=== PATIENT | male | born 1965 | race Caucasian/White ===

== ENCOUNTER 2018-09-29 10:39 | Emergency (ER) | payer OTHER ==
--- NOTE | 2018-09-29 10:47 | PDOC ---
Attending Attestation - Resident Resident Name: Eugene Donaldson - HPI HPI: 09/29/18 11:35 Pt presents to the Ed after cutting his R forearm on metal that was sticking up from a ventilation bailey. Denies other injuries. Injury happened immediately prior to arrival. Uncertain of last tetanus. - Physicial Exam PE: 09/29/18 11:36 + 6 cm gaping wound to the volar surface of the R forearm. + tendon visible. Tendon examined through full ROM and appears intact. Intact wrist and finger flexion. 09/29/18 11:38 - Medical Decision Making 09/29/18 11:38 Pt presents to the ED complaining of laceration to the forearm. Wound repaired in the ED. No suspicion for foreign body or fracture. Will discharge home with instructions to return to the ED in 10 days for suture removal, and to return immediately for signs of infection. Given that the patient is diabetic, will prescribe prophylaxc antibiotics.
[2018-09-29 11:00] VITALS: BP 99/65; PULSE 84; TEMP 98.3; BMI 34.4
[2018-09-29] MEDS ORDERED: DIPHTH,PERTUSS(ACELL),TET 0.5 ML DISP.SYRIN IM ONE ×2 (11:22→12:30)
--- NOTE | 2018-09-29 11:26 | PDOC ---
History of Present Illness - General Chief Complaint: Laceration Stated Complaint: I CUT MY ARM Time Seen by Provider: 09/29/18 10:47 - History of Present Illness Initial Comments: 09/29/18 11:28 Mr. Correia is a 53 yo male w/ pmh of DM who presents for evaluation after falling on a metal grate and cutting his R forearm earlier today. Patient denies hitting his head or any LOC. Patient is unsure of last tetanus shot. The patient denies chest pain, shortness of breath, headache and dizziness. Denies fever, chills, nausea, vomit, diarrhea and constipation. Denies dysuria, frequency, urgency and hematuria. Past History - Past Medical History Home Medications: Ambulatory Orders Cephalexin [Keflex] 500 mg PO BID #10 capsule 09/29/18 COPD: No - Suicide/Smoking/Psychosocial Hx Smoking History: Current every day smoker Number of Cigarettes Smoked Daily: 1 Information on smoking cessation initiated: Yes Hx Alcohol Use: Yes (OCASSIONAL) Drug/Substance Use Hx: No Review of Systems - Review of Systems Comments:: 09/29/18 11:30 GENERAL/CONSTITUTIONAL: No fever or chills. No weakness. HEAD, EYES, EARS, NOSE AND THROAT: No change in vision. No ear pain or discharge. No sore throat. CARDIOVASCULAR: No chest pain or shortness of breath RESPIRATORY: No cough, wheezing, or hemoptysis. GASTROINTESTINAL: No nausea, vomiting, diarrhea or constipation. GENITOURINARY: No dysuria, frequency, or change in urination. MUSCULOSKELETAL: +R forearm laceration as described. SKIN: No rash NEUROLOGIC: No headache, vertigo, loss of consciousness, or change in strength/ sensation. ENDOCRINE: No increased thirst. No abnormal weight change HEMATOLOGIC/LYMPHATIC: No anemia, easy bleeding, or history of blood clots. ALLERGIC/IMMUNOLOGIC: No hives or skin allergy. *Physical Exam - Vital Signs Last Vital Signs Temp Pulse Resp BP Pulse Ox 98.3 F 84 17 99/65 98 09/29/18 10:39 09/29/18 10:39 09/29/18 10:39 09/29/18 10:39 09/29/18 10:39 - Physical Exam Comments: 09/29/18 11:30 GENERAL: Awake, alert, and fully oriented, in no acute distress HEAD: No signs of trauma, normocephalic, atraumatic EYES: PERRLA, EOMI, sclera anicteric, conjunctiva clear ENT: Auricles normal inspection, hearing grossly normal, nares patent, oropharynx clear without exudates. Moist mucosa NECK: Normal ROM, supple, no lymphadenopathy, JVD, or masses LUNGS: No distress, speaks full sentences, clear to auscultation bilaterally HEART: Regular rate and rhythm, normal S1 and S2, no murmurs, rubs or gallops, peripheral pulses normal and equal bilaterally. ABDOMEN: Soft, nontender, normoactive bowel sounds. No guarding, no rebound. No masses EXTREMITIES: +5cm laceration noted to R forearm. Linear, clean appearing. Neurovascularly intact. NEUROLOGICAL: Cranial nerves II through XII grossly intact. Normal speech, normal gait, no focal sensorimotor deficits SKIN: Warm, Dry, normal turgor, no rashes or lesions noted. Moderate Sedation - Procedure Monitoring Vital Signs: Procedure Monitoring Vital Signs Temperature 98.3 F 09/29/18 10:39 Pulse Rate 84 09/29/18 10:39 Respiratory Rate 17 09/29/18 10:39 Blood Pressure 99/65 09/29/18 10:39 O2 Sat by Pulse Oximetry (%) 98 09/29/18 10:39 Procedures - Laceration/Wound Repair Right Volar Arm Wound Length: 2.6 to 5.0 cm Wound Explored: clean, no foreign body present Wound's Depth, Shape: linear Irrigated w/ Saline: Yes Anesthesia: 1% Lidocaine Amount of Anesthetic (ccs): 6 Wound Debrided: minimal Wound Repaired With: Sutures Suture Size/Type: 3:0 Number of Sutures: 9 Layer Closure: No Sterile Dressing Applied: Yes Splint Applied: No Medical Decision Making - Medical Decision Making 09/29/18 11:30 Mr. Correia is a 53 yo male w/ pmh as described who presents for evaluation post fall of laceration. Patient alert and oriented with no concerning findings. Laceration only wound at this time. Laceration irrigated and sutured as described. No concern for acute process at this time. Patient placed on keflex for prophylaxis and will return in 10 days. Strict return precautions discussed. Discharging to home. *DC/Admit/Observation/Transfer Diagnosis at time of Disposition: Laceration - Discharge Dispostion Disposition: HOME Condition at time of disposition: Stable - Prescriptions Prescriptions: Cephalexin [Keflex] 500 mg PO BID #10 capsule - Referrals - Patient Instructions Printed Discharge Instructions: DI for Laceration Repair Additional Instructions: You were evaluated today in the ER for your laceration. We repaired your cut with 9 external sutures and placed on you antibiotics for infection prophylaxis. Please fill prescription at your pharmacy and take all medications as proscribed. Refrain from any heavy lifting or work for at least 3 days with right arm. Return to ER in 10 days for stitch removal. Return to ER IMMEDIATELY if any fever, chills, increase in pain not controllable with over the counter motrin or tylenol, weakness, or other concerning symptoms. - Post Discharge Activity Forms/Work/School Notes: Back to Work
== END 2018-09-29 11:47 | disposition home or self-care (01) ==
LOC: FER 10:39
PROC: 0HQDXZZ Repair Right Lower Arm Skin, External Approach (ICD-10-PCS; principal; 2018-09-29)
PROC: 3E0234Z Introduction of Serum, Toxoid and Vaccine into Muscle, Percutaneous Approach (ICD-10-PCS; 2018-09-29)
DX: S51.811A Laceration without foreign body of right forearm, initial encounter (principal); E11.9 Type 2 diabetes mellitus without complications; F17.210 Nicotine dependence, cigarettes, uncomplicated; W45.8XXA Other foreign body or object entering through skin, initial encounter; Y93.9 Activity, unspecified; Y92.9 Unspecified place or not applicable
CPT/HCPCS: 90715; 99282-25

== ENCOUNTER 2018-10-19 13:32 | Emergency (ER) | payer OTHER ==
[2018-10-19 13:37] VITALS: BP 145/89; PULSE 87; TEMP 97.5; BMI 39.3
--- NOTE | 2018-10-19 13:43 | PDOC ---
Suture Removal/Wound Check HPI - History of Present Illness Chief Complaint: Suture/Staple Removal(Here) Stated Complaint: SUTURE REMOVAL RT FOREARM Time Seen by Provider: 10/19/18 13:42 History Source: Yes: Patient Exam Limitations: Yes: No Limitations Date of Last ED visit: 09/29/18 - Previous ED Treatment Type of procedure performed on last visit: Yes: Laceration Repair Tetanus Immunization: Yes: Given at last ED visit Antibiotics Prescribed: Yes ([place], pt stated he completed) - Onset of Previous Treatment Date of Occurence: 09/29/18 Comment:: 10/19/18 14:09 53 year old male with PMH DM presented to ED for suture removal. Pt stated he waited 20 days to return because he didnt think the stitches were ready to come out. Pt stated he took out 1 suture himself yesterday because it was itching. Pt denied numbness, weakness, tingling, fever, chills, nausea, vomiting, diarrhea, abdominal pain, chest pain, shortness of breath or any other complaints. Pt was given tetanus shot and Keflex prescription at last ED visit, he stated he took all medication as prescribed. Allergies: NKDA Past History - Past Medical History Allergies/Adverse Reactions: Allergies Allergy/AdvReac Type Severity Reaction Status Date / Time No Known Allergies Allergy Verified 10/19/18 13:33 Home Medications: Ambulatory Orders NK [No Known Home Medication] 10/19/18 COPD: No Other medical history: DENIES - Suicide/Smoking/Psychosocial Hx Smoking History: Current every day smoker Have you smoked in the past 12 months: Yes Number of Cigarettes Smoked Daily: 1 Information on smoking cessation initiated: Yes Hx Alcohol Use: No Drug/Substance Use Hx: No Suture Removal/Wound Check PE - Physical Exam Laceration/Wound Check Symptoms: denies: Fever, Chills, Redness, Discharge, Bleeding, Numbness, Weakness Location of Laceration/Wound: right: Forearm *Review of Systems - Review of Systems Able to Perform ROS?: Yes Constitutional: No: Chills, Fever, Weakness Respiratory: No: Shortness of Breath, Wheezing Cardiac (ROS): No: Chest Pain, Lightheadedness, Palpitations ABD/GI: No: Nausea, Vomiting : No: Burning, Dysuria, Hematuria Musculoskeletal: No: Muscle Pain, Muscle Weakness Integumentary: Yes: Pruritus. No: Bruising, Change in Color, Erythema, Rash *Physical Exam - Vital Signs Last Vital Signs Temp Pulse Resp BP Pulse Ox 97.5 F L 87 18 145/89 96 10/19/18 13:32 10/19/18 13:32 10/19/18 13:32 10/19/18 13:32 10/19/18 13:32 - Physical Exam Comments: 10/19/18 14:05 Constitutional: Well-nourished, Well-developed, appearing stated age. HEENT: head is normocephalic, atraumatic. EOMI. PERRLA. Neck: supple. Full ROM. Heart: regular rhythm. no murmurs, rubs or gallops. Lungs: clear to auscultation bilaterally. no crackles, rhonchi or wheezing. no stridor. Abdomen: soft, nontender. normal bowel sounds. no rebound, guarding, masses. Extremities: Peripheral pulses intact. No lower extremity edema. Neurological: CN 2-12 grossly intact. Moves all four extremities. Psych: awake, alert, oriented x3. Follows commands. Answers questions appropriately. Skin: 8 sutures to right forearm. no surrounding erythema. scabbing overlying sutures. no drainage. Moderate Sedation - Procedure Monitoring Vital Signs: Procedure Monitoring Vital Signs Temperature 97.5 F L 10/19/18 13:32 Pulse Rate 87 10/19/18 13:32 Respiratory Rate 18 10/19/18 13:32 Blood Pressure 145/89 10/19/18 13:32 O2 Sat by Pulse Oximetry (%) 96 10/19/18 13:32 Medical Decision Making - Medical Decision Making 10/19/18 14:10 53 year old male presented to ED for suture removal x20 days post laceration repair. Initial Vital Signs Temp Pulse Resp BP Pulse Ox 97.5 F L 87 18 145/89 96 10/19/18 13:32 10/19/18 13:32 10/19/18 13:32 10/19/18 13:32 10/19/18 13:32 Afebrile. No tachycardia. No tachypnea. Mild hypertension. No hypoxia on room air. Labs ordered: none Imaging ordered: none Medications ordered: none 8 sutures were removed without difficulty. The overlying skin grew on top of the sutures secondary to delayed wound check presentation. Bacitracin was applied over the wound and it was covered with gauze. Pt discharged. *DC/Admit/Observation/Transfer Diagnosis at time of Disposition: Visit for suture removal - Discharge Dispostion Disposition: HOME Condition at time of disposition: Improved Decision to Admit order: No - Referrals Referrals: Timur Dsouza MD [Staff Physician] - - Patient Instructions Printed Discharge Instructions: DI for Suture Removal Additional Instructions: Wash the area with soap and water, do not scrub. Watch the area for surrounding redness, drainage. Return to the Emergency Department for vomiting, abdominal pain, chest pain, shortness of breath, lightheadedness, fever, chills or any other new, worsening or concerning symptom. Follow up with a primary care doctor within 5 days. I have provided you with a referral should you need one. Apply neosporin/bacitracin to the area as needed. Take Tylenol over the counter for pain as needed, take as advised on label. - Post Discharge Activity Forms/Work/School Notes: Back to Work
--- NOTE | 2018-10-19 13:47 | PDOC ---
Attending Attestation - Resident Resident Name: Keily Dash - HPI HPI: 10/20/18 19:02 Pt presents to the ED requesting removal of sutures placed in the forearm two weeks ago. Denies other complaints. 10/21/18 19:48 - Physicial Exam PE: 10/21/18 19:48 Wound is closed with no erythema, purulent discharge or other signs of infection. There is a small area where the epidermis has healed poorly, although the subcutaneous tissues are closed. + granulation tissue. 10/21/18 19:50 10/21/18 19:51 - Medical Decision Making 10/21/18 19:50 Pt presents to the ED requesting suture removal. Wound is healing with no sign of infection, although there is a small area of poor healing. the patient understands that this wound will heal with a scar. 10/21/18 19:51
== END 2018-10-19 14:10 | disposition home or self-care (01) ==
LOC: FER 13:32
DX: Z48.02 Encounter for removal of sutures (principal)
CPT/HCPCS: 99282-25